=== PATIENT | male | born 1980 | race Caucasian/White ===

== ENCOUNTER 2023-08-23 17:11 | Emergency (ER) | payer BC ==
[~2023-08-23] VITALS: Ht 180.3 cm; Wt 77.1 kg
[~2023-08-23 17:11] MED LIST: NKHM; NKHM PO; ZANTAC150 MG PO
== END 2023-08-23 18:00 | disposition home or self-care (01) ==
LOC: ED 17:11
DX: S61.432A Puncture wound without foreign body of left hand, initial encounter (principal); S00.411A Abrasion of right ear, initial encounter; R42 Dizziness and giddiness; W22.8XXA Striking against or struck by other objects, initial encounter; Y93.89 Activity, other specified; Y92.091 Bathroom in other non-institutional residence as the place of occurrence of the external cause; Y99.8 Other external cause status